=== PATIENT | male | born 1930 | race Caucasian/White ===

== ENCOUNTER 2021-08-29 22:04 | Inpatient (IN) | payer MEDICARE ==
[~2021-08-29] VITALS: Ht 180.3 cm; Wt 83.5 kg
[~2021-08-29 22:04] MED LIST: ACCUNEB SO1.25 MG/1 INH; ASPIRIN325 PO; COREG6.25 MG PO; HYDROCHLOROTHIA25 M2 PO; IMDUR 60 MG TAB60 M1 PO; KEFLEX250 M1 PO; LEVAQUIN 500 M500 M2 PO; LISINOPRIL10 MG PO; MONTELUKAST SOD10 MG PO; NORCO 5-325 TA1 EAC1 PO; PLAVIX 75 MG TA75 M1 PO; PREDNISONE 10 M10 MG PO; PROTONIX40 M1 PO; ZOCOR20 MG PO
[2021-08-29 22:05] VITALS: BP 176/96
[2021-08-29 22:27] LABS: ABSOLUTE BASOPHILS 0.1 thou/uL (0.0-0.2); ABSOLUTE EOSINOPHILS 0.4 thou/uL (0.0-0.7); ABSOLUTE LYMPHOCYTES 5.3 thou/uL (0.8-5.3); ABSOLUTE MONOCYTES 1.3 thou/uL (0.0-1.2); ABSOLUTE NEUTROPHILS 5.5 thou/uL (1.6-8.1); HEMATOCRIT 44.1 % (42.0-52.0); HEMOGLOBIN 14.5 gm/dL (14.0-18.0); LYMPHOCYTES 41.9 %; MCH 31.5 pg (26.0-34.0); MCHC 32.9 g/dL (28.0-37.0); MCV 95.9 fL (80.0-100.0); MONOCYTES 10.4 %; MPV 7.2 fl. (7.2-11.1); NUCLEATED RBCS 0 /100WBC; PLATELET COUNT* 330 thou/uL (150-400); POLYS 43.7 %; RDW-CV 13.7 % (10.5-14.5); WBC 12.6 thou/uL (4.0-11.0)
[2021-08-29 22:42] LABS: CALCIUM 8.6 mg/dL (8.5-10.1); CREATININE 1.4 mg/dL (0.6-1.3); POTASSIUM 3.7 mmol/L (3.5-5.1)
[2021-08-29 22:46] LABS: APTT 27.8 Seconds (25.0-31.3); INR 1.1; PROTIME 11.4 Seconds (9.20-11.50)
[2021-08-29 22:47] LABS: ALBUMIN 3.2 g/dL (3.4-5.0); MAGNESIUM 1.9 mg/dL (1.8-2.4); TOTAL BILIRUBIN 0.5 mg/dL (<0.1-1.0); TOTAL PROTEIN 8.4 g/dL (6.4-8.2)
[2021-08-29] MEDS ORDERED: CARVEDILOL12.5 MG PO (22:56)
[2021-08-29] MEDS ORDERED: LIPITOR40 MG PO (22:56)
[2021-08-29] MEDS ORDERED: ARTHRITIS PAIN100 GM TOP (22:56)
[2021-08-29] MEDS ORDERED: HYDROCHLOROTHIA25 M1 PO (22:56)
[2021-08-29] MEDS ORDERED: LEVO-T75 MCG PO (22:57)
[2021-08-29] MEDS ORDERED: LISINOPRIL10 MG PO (22:57)
[2021-08-29] MEDS ORDERED: ATROVENT HFA14 GM INH (22:57)
[2021-08-29] MEDS ORDERED: OMEPRAZOLE 20 M20 M1 PO (22:58)
[2021-08-29] MEDS ORDERED: NITROSTAT0.4 M1 PO (22:58)
[2021-08-29 23:17] LABS: BE -2.1 mmol/L (-2 to +3)
[2021-08-29 23:18] LABS: PCO2 53.1 mmHg (35.0-45.0); PO2 364.1 mmHg (75.0-100.0); pH 7.294 (7.340-7.450)
[2021-08-30] VITALS (46 sets, daily range): BP systolic 106–152; BP diastolic 51–91
[2021-08-30 01:07] LABS: BE -1.8 mmol/L (-2 to +3); pH 7.313 (7.340-7.450)
[2021-08-30 01:09] LABS: PCO2 50.3 mmHg (35.0-45.0)
[2021-08-30 11:18] LABS: HEMATOCRIT 42.5 % (42.0-52.0); HEMOGLOBIN 14.2 gm/dL (14.0-18.0); MCH 31.9 pg (26.0-34.0); MCHC 33.5 g/dL (28.0-37.0); MCV 95.3 fL (80.0-100.0); MPV 7.3 fl. (7.2-11.1); NUCLEATED RBCS 0 /100WBC; PLATELET COUNT* 290 thou/uL (150-400); RBC 4.45 mil/uL (4.50-6.00); URINE BILIRUBIN NEGATIVE (Negative); URINE BLOOD TRACE (Negative); URINE CLARITY CLEAR; URINE COLOR YELLOW; URINE GLUCOSE-RANDOM NEGATIVE (Negative); URINE KETONES NEGATIVE (Negative); URINE LEUKOCYTES-REFLEX NEGATIVE (Negative); URINE NITRITE-REFLEX NEGATIVE (Negative); URINE PROTEIN NEGATIVE (Negative); URINE SPECIFIC GRAVITY 1.015 (1.005-1.030); URINE UROBILINOGEN 0.2 E.U./dl (0.2-1.0); WBC 9.6 thou/uL (4.0-11.0)
--- NOTE | 2021-08-30 11:20 | EKG ---
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: : 1930 Requested By: Haley Griffith Order Number: [id number] MD: El Acosta Measurements Intervals Lutz Rate: 116 P: 55 VA: 158 QRS: 55 QRSD: 105 T: -40 QT: 322 QTc: 448 Interpretive Statements Sinus tachycardia Ventricular premature complex Borderline T abnormalities, inferior leads Compared to ECG 10/19/2015 09:23:08 Ventricular premature complex(es) now present Sinus rhythm no longer present Electronically Signed On 08-30-2021 11:19:46 LEPIDOPTERIST by El Acosta [email or web address] <ELECTRONICALLY SIGNED> By: El Acosta MD, FACC 08/30/21 1119 09 09 El Acosta MD, FACC /EPI
--- NOTE | 2021-08-30 11:22 | EKG ---
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
[2021-08-30 11:29] LABS: INR 1.1; PROTIME 11.3 Seconds (9.20-11.50)
[2021-08-30 11:32] LABS: ALBUMIN 2.9 g/dL (3.4-5.0); CALCIUM 8.6 mg/dL (8.5-10.1); CREATININE 1.3 mg/dL (0.6-1.3); MAGNESIUM 1.9 mg/dL (1.8-2.4); POTASSIUM 3.9 mmol/L (3.5-5.1); TOTAL BILIRUBIN 0.6 mg/dL (<0.1-1.0); TOTAL PROTEIN 7.9 g/dL (6.4-8.2)
[2021-08-30 12:18] LABS: ABSOLUTE LYMPHOCYTES 1.5 thou/uL (0.8-5.3); ABSOLUTE MONOCYTES 0.1 thou/uL (0.0-1.2); PLATELET ESTIMATE ADEQUATE
--- NOTE | 2021-08-30 13:57 | 2DMMODE ---
[place] [address] 2 D/M-MODE ECHOCARDIOGRAM Name: RACHEL MOSESShanice Gil Room: [address] ADM IN [facility]#: [id number] Admission: 08/30/21 Attend Phys: Manuel Khan Discharge: Date of : [birth year] Date of Service: 08/30/21 1357 Report #: [id number] THIS REPORT FOR: cc: Robert Car MD, Alan J. MD Blick, David R. MD [facility] ~ APPROVED REPORT Study performed: 08/30/2021 10:25:26 EXAM: Comprehensive 2D, Doppler, and color-flow Echocardiogram Patient Location: In-Patient Room #: 004 Status: routine BSA: 1.85 HR: 101 bpm BP: 143/74 mmHg Rhythm: NSR Other Information Study Quality: Good Indications Dyspnea 2D Dimensions IVSd: 11.81 (7-11mm) LVOT Diam: 20.68 (18-24mm) LVDd: 47.12 mm PWd: 9.71 (7-11mm) Ascending Ao: 28.72 (22-36mm) LVDs: 41.05 (25-40mm) Aortic Root: 33.07 mm Volumes Left Atrial Volume (Systole) LA ESV Index: 42.70 mL/m2 Aortic Valve AoV Peak Ronal.: 1.98 m/s AO Peak Gr.: 15.68 mmHg LVOT Max P.40 mmHg AO Mean Gr.: 9.52 mmHg LVOT Mean P.08 mmHg LVOT Max V: 0.77 m/s AO V2 VTI: 32.75 cm LVOT Mean V: 0.47 m/s AROLDO (VTI): 1.54 cm2 LVOT V1 VTI: 14.99 [place] [address] 2 D/M-MODE ECHOCARDIOGRAM Name: GALI MOSES Room: [address] IN ..#: [id number] Admission: 08/30/21 Attend Phys: Manuel Khan Discharge: Date of : [birth year] Date of Service: 08/30/21 1357 Report #: [id number] Mitral Valve E/A Ratio: 1.11 MV Decel. Time: 151.64 ms MV E Max Ronal.: 1.14 m/s MV PHT: 43.98 ms MVA (PHT): 5.00 cm2 TDI E/Lateral E': 10.36 Lateral E' Ronal.: 0.11 m/s Pulmonary Valve PV Peak Ronal.: 1.02 m/s PV Peak Gr.: 4.19 mmHg Tricuspid Valve RAP Estimate: 5.00 mmHg TR Peak Gr.: 35.87 mmHg RVSP: 41.00 mmHg PA Pressure: 41.00 mmHg Left Ventricle The left ventricle is normal size. akinesis of the base of the inferior wall There is normal left ventricular wall thickness. Left ventricular systolic function is mildly decreased. LVEF is 40-45%. The left ventricular diastolic function is normal. Right Ventricle The right ventricle is normal size. The right ventricular systolic function is normal. Atria Left atrium is moderately dilated. The right atrium size is normal. Aortic Valve Aortic valve is calcified. trace aortic regurgitation. Mild aortic stenosis. Mitral Valve The mitral valve is normal in structure. Moderate mitral regurgitation. No evidence of mitral valve stenosis. Tricuspid Valve The tricuspid valve is normal in structure. Trace tricuspid regurgitation. estimated pa pressure 40 mmm [place] [address] 2 D/M-MODE ECHOCARDIOGRAM Name: RACHEL MOSESShanice Gil Room: [address]#: [id number] Admission: 08/30/21 Attend Phys: Manuel Khan Discharge: Date of : [birth year] Date of Service: 08/30/21 1357 Report #: [id number] The pulmonary valve is normal in structure. There is no pulmonic valvular regurgitation. Great Vessels The aortic root is normal in size. IVC is normal in size and collapses >50% with inspiration. Pericardium There is no pericardial effusion. <Conclusion> LVEF is 40-45%. akinesis of the base of the inferior wall Left atrium is moderately dilated. Mild aortic stenosis. Moderate mitral regurgitation. Trace tricuspid regurgitation. estimated pa pressure 40 mmm Hg <ELECTRONICALLY SIGNED> By: El Acosta MD, [facility] 08/30/21 1357 1357 135 El Acosta MD, FACC /INF
[2021-08-31] VITALS (18 sets, daily range): BP systolic 112–166; BP diastolic 53–77
[2021-08-31 03:40] LABS: ABSOLUTE LYMPHOCYTES 0.8 thou/uL (0.8-5.3); ABSOLUTE MONOCYTES 0.3 thou/uL (0.0-1.2); ABSOLUTE NEUTROPHILS 10.5 thou/uL (1.6-8.1); BASOPHILS 0.1 %; HEMATOCRIT 40.7 % (42.0-52.0); HEMOGLOBIN 13.5 gm/dL (14.0-18.0); LYMPHOCYTES 6.6 %; MCH 31.6 pg (26.0-34.0); MCHC 33.2 g/dL (28.0-37.0); MCV 95.3 fL (80.0-100.0); MONOCYTES 2.3 %; MPV 7.1 fl. (7.2-11.1); NUCLEATED RBCS 0 /100WBC; PLATELET COUNT* 270 thou/uL (150-400); RBC 4.27 mil/uL (4.50-6.00); RDW-CV 14.2 % (10.5-14.5); WBC 11.5 thou/uL (4.0-11.0)
[2021-08-31 03:59] LABS: ALBUMIN 2.7 g/dL (3.4-5.0); ALKALINE PHOSPHATASE 71 U/L (46-116); ANION GAP 8 mmol/L (7-16); BUN 21 mg/dL (7-18); CALCIUM 8.4 mg/dL (8.5-10.1); CHLORIDE 102 mmol/L (98-107); CHOLESTEROL 119 mg/dL (<200); CO2 27 mmol/L (21-32); CREATININE 1.1 mg/dL (0.6-1.3); GLUCOSE 153 mg/dL (70-99); HDL CHOLESTEROL 63 mg/dL (>40); LDL CHOLESTEROL 44 mg/dL (<100); MAGNESIUM 2.3 mg/dL (1.8-2.4); POTASSIUM 3.8 mmol/L (3.5-5.1); SGOT 28 U/L (15-37); SGPT 24 U/L (30-65); SODIUM 137 mmol/L (136-145); TC:HDL 1.9 Ratio (Not establshd); TOTAL BILIRUBIN 0.6 mg/dL (<0.1-1.0); TOTAL PROTEIN 7.1 g/dL (6.4-8.2); TRIGLYCERIDE 61 mg/dL (<150); VLDL 12 mg/dL (<40)
[2021-08-31 04:03] LABS: SERUM ASSESSMENT CLEAR
--- NOTE | 2021-08-31 09:13 | CON ---
[address] [address] CONSULTATION Name: GALI MOSES Room: [address] IN M.R.#: [id number] Admission: 08/30/21 Attend Phys: Adrianne Mir Discharge: Date of : [birth year] Report #: [id number] THIS REPORT FOR: cc: Robert Car MD, Alan J. MD Blick, David R. MD [facility] ~ cc: Osman Barton MD DATE OF CONSULTATION: 08/30/2021 CARDIOLOGY CONSULTATION HISTORY OF PRESENT ILLNESS: The patient is an 89-year-old single white male who I was asked to see in the hospital today after he fell. The history is obtained from the patient. There are no old records available here. His grandson was present. According to the patient, he had a heart attack back in 1983 and had triple-vessel bypass surgery at [facility]. He has been followed by Dr. Contreras since that time. He has had several heart catheterizations since his bypass surgery, which is now more than 30 years ago, but he never required stenting. His last heart catheterization was several years ago in [facility]. He stays very active and denies any recent chest pain. Recently, he has had increasing shortness of breath, but denied any fever, edema or cough. Last night, he was at home. He then was walking in the home and fell. A friend came to visit him and saw him on the ground. Ambulance was called. He was brought here to [facility] and admitted for further evaluation and treatment. He denies any palpitations, previous syncope, vomiting, bleeding, diarrhea, medical noncompliance. PAST MEDICAL HISTORY: He has had cholecystectomy, prostate biopsy, cataract extraction. He has a history of hypertension. MEDICATIONS: His medications at home include carvedilol, isosorbide, hydrochlorothiazide, lisinopril, simvastatin, Protonix, aspirin, Lipitor, Atrovent inhaler, Synthroid, omeprazole. ALLERGIES: He has no known drug allergies. FAMILY HISTORY: His mother had a heart attack. SOCIAL HISTORY: He is , lives by himself in [place]. Quit smoking in 1983. He has a history of alcohol abuse, but quit 38 years ago when he went to . 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 REVIEW OF SYSTEMS: He has had no history of stroke, asthma, liver disease, kidney disease, cancer, psychiatric illness, [place] [address] CONSULTATION Name: GALI MOSES Room: [address] IN [facility]#: [id number] Admission: 08/30/21 Attend Phys: Adrianne Mir Discharge: Date of : [birth year] Report #: [id number] PHYSICAL EXAMINATION: GENERAL: Revealed an elderly male, lying in bed, he appeared in no distress. VITAL SIGNS: He had a blood pressure of 130/70, pulse is 90. He is afebrile. HEENT: He was anicteric. Conjunctivae pink. Mucous membranes moist. NECK: Veins not distended. No carotid bruits. Neck is supple. CHEST: Clear to auscultation. CARDIAC: Regular rate and rhythm with a grade 2 holosystolic murmur at the apex. ABDOMEN: Soft. EXTREMITIES: Had no edema. Dorsalis pedis pulse could not be palpated. SKIN: Cool and dry. NEUROLOGIC: Nonfocal. DIAGNOSTIC DATA: The patient's workup in the Emergency Room last night included an ECG that showed a sinus rhythm with early transition, nonspecific ST segment changes. On the monitor in the ICU this morning, he was noted to have a 12-beat run of wide complex tachycardia consistent with ventricular tachycardia at 180 beats per minute. His workup in the Emergency Room last night, he had a portable chest x-ray that showed consolidations in the left lower lung field, also mass-like lesion in the right upper lobe. He had a CT scan of the chest using a PE protocol that showed no pulmonary embolus, evidence of right upper lobe pneumonia, pulmonary edema, left nodule suspicious for cancer. He actually had a CT scan of the head without contrast after he fell that showed previous lacunar infarction, small vessel changes. LABORATORY DATA: His lab work, sodium 138, creatinine 1.3. High-sensitivity troponin was 655, it was 29 on admission. His hemoglobin is 14.2. His COVID antigen stat test was negative. Urinalysis is negative for protein. IMPRESSION AND RECOMMENDATIONS: 1. History of fall. Possible loss of balance. 2. Previous coronary artery bypass surgery. No recent angina. Borderline troponin. I would not recommend stress testing nor cardiac catheterization at this time. I would continue on aspirin a day. 3. Hypertension. The patient is on a beta jaleesa and ELICEO inhibitor. 4. Hyperlipidemia. The patient is on a statin drug. 5. Previous tobacco abuse. 6. [place] [address] CONSULTATION Name: GALI MOSES Room: [address] IN M.R.#: [id number] Admission: 08/30/21 Attend Phys: Adrianne Mir Discharge: Date of : [birth year] Report #: [id number] 7. Nonsustained ventricular tachycardia. I would not treat at this time. I would obtain an echocardiogram. <ELECTRONICALLY SIGNED> By: El Acosta MD, FACC 08/31/21 0913 1224 [id number] Acosta MD, FACErnesto /nt
[2021-08-31 10:44] LABS: PCO2 36.8 mmHg (35.0-45.0); pH 7.446 (7.340-7.450)
[2021-08-31 10:50] LABS: PO2 57.7 mmHg (75.0-100.0)
[2021-09-01] VITALS (7 sets, daily range): BP systolic 103–150; BP diastolic 57–84
[2021-09-01 04:10] LABS: HEMATOCRIT 36.7 % (42.0-52.0); HEMOGLOBIN 12.1 gm/dL (14.0-18.0); MCH 31.4 pg (26.0-34.0); MCHC 32.9 g/dL (28.0-37.0); MCV 95.3 fL (80.0-100.0); MPV 7.2 fl. (7.2-11.1); RBC 3.85 mil/uL (4.50-6.00); RDW-CV 13.7 % (10.5-14.5); WBC 11.7 thou/uL (4.0-11.0)
[2021-09-01 04:20] LABS: ALBUMIN 2.6 g/dL (3.4-5.0); CALCIUM 8.2 mg/dL (8.5-10.1); CREATININE 1.1 mg/dL (0.6-1.3); MAGNESIUM 1.9 mg/dL (1.8-2.4); POTASSIUM 3.5 mmol/L (3.5-5.1); TOTAL BILIRUBIN 0.5 mg/dL (<0.1-1.0); TOTAL PROTEIN 6.4 g/dL (6.4-8.2)
[2021-09-01 08:21] LABS: INFLUENZA A ANTIGEN Negative (Negative); INFLUENZA B ANTIGEN Negative (Negative)
[2021-09-02 03:40] VITALS: BP 113/61
[2021-09-02 09:28] VITALS: BP 137/63
[2021-09-02 09:37] LABS: ABSOLUTE LYMPHOCYTES 0.7 thou/uL (0.8-5.3); ABSOLUTE MONOCYTES 0.3 thou/uL (0.0-1.2); ABSOLUTE NEUTROPHILS 9.4 thou/uL (1.6-8.1); BASOPHILS 0.4 %; EOSINOPHILS 0.1 %; HEMOGLOBIN 12.5 gm/dL (14.0-18.0); LYMPHOCYTES 7.1 %; MCH 31.9 pg (26.0-34.0); MCHC 33.7 g/dL (28.0-37.0); MCV 94.6 fL (80.0-100.0); MONOCYTES 3.1 %; MPV 7.7 fl. (7.2-11.1); NUCLEATED RBCS 0 /100WBC; PLATELET COUNT* 273 thou/uL (150-400); POLYS 89.3 %; RBC 3.91 mil/uL (4.50-6.00); RDW-CV 13.5 % (10.5-14.5); WBC 10.5 thou/uL (4.0-11.0)
[2021-09-02 10:05] LABS: ALBUMIN 2.6 g/dL (3.4-5.0); CALCIUM 8.4 mg/dL (8.5-10.1); CREATININE 1.2 mg/dL (0.6-1.3); POTASSIUM 3.4 mmol/L (3.5-5.1); TOTAL BILIRUBIN 0.6 mg/dL (<0.1-1.0); TOTAL PROTEIN 5.9 g/dL (6.4-8.2)
[2021-09-02 12:00] VITALS: BP 106/62
[2021-09-02 16:00] VITALS: BP 120/63
[2021-09-02 20:12] VITALS: BP 138/63
--- NOTE | 2021-09-02 20:39 | CON ---
[address] [address] CONSULTATION Name: GALI MOSES Louise Room: [address] IN M.R.#: [id number] Admission: 08/30/21 Attend Phys: Adrianne Mir Discharge: Date of : [birth year] Report #: [id number] THIS REPORT FOR: cc: Robert Car MD, Alan J. MD Pervez, Adeel MD ~ DATE OF CONSULTATION: 08/30/2021 REQUESTING PHYSICIAN: Dr. Brandt. INDICATION FOR CONSULTATION: COPD with respiratory failure/pulmonary infiltrates/possible lung mass. HISTORY OF PRESENT ILLNESS: This is an 89-year-old gentleman, past medical history includes a history of coronary artery disease. He is status post CABG. I do not have a measure of his left ventricular ejection fraction available. He does have an extensive history of smoking in the past. He is on oxygen at home. He is using it only during the day and not at night and may have misunderstood instructions. The patient has been vaccinated for COVID with initial 2 doses and then booster as well. He has also had the flu shot this fall. The patient now reports that he had increasing shortness of breath for the last 1 week. He had also had a cough and reports having brought up small amounts of green as well as yellow sputum. The patient subsequently had a fall. He is not able to describe how he fell. He does not describe any recent sore throat, fever or runny nose. He does not describe swelling of lower extremities or calf pain. He has had some joint pains, which remain at baseline. He does not describe any abdominal complaints or urinary complaints. Upon arrival, the patient was found to be in respiratory distress initially. He was placed on 100% FiO2 with a BiPAP. He did have a respiratory acidosis; however, it does not appear that he was markedly hypoxemic. His pO2 initially was 364 and oxygen was quickly titrated down and the BiPAP to 40%. We have just taken him off BiPAP and placed him on 10 liters green high-flow nasal cannula. He so far is maintaining O2 saturation in the high 90s. He is mildly tachycardic with a heart rate around 110. He is maintaining normal blood pressure. REVIEW OF SYSTEMS: For 12 points is negative except as described above. PAST MEDICAL HISTORY: Coronary artery disease, status post CABG, status post myocardial infarction, I do not have a measure of his left ventricular ejection fraction available, COPD, he is on oxygen long-term, hypertension, osteoarthritis, [place] [address] CONSULTATION Name: GALI MOSES Louise Room: [address] IN [facility].#: [id number] Admission: 08/30/21 Attend Phys: Adrianne Mir Discharge: Date of : [birth year] Report #: [id number] SOCIAL HISTORY: He has an extensive history of smoking in the past. He has now discontinued. No known history of heavy alcohol use or illegal drug use. CURRENT MEDICATIONS: List in [employer] reviewed. HOME MEDICATIONS: List also in [employer] reviewed. ALLERGIES: No known drug allergies. FAMILY HISTORY: There is a history of coronary artery disease and lung cancer in his family. IMMUNIZATION HISTORY: He has had 2 doses of COVID-19 vaccine and also had the booster. He also had the flu shot this year. PHYSICAL EXAMINATION: GENERAL: He is alert, awake and oriented; however, he does provide somewhat limited history. VITAL SIGNS: I have just taken him off BiPAP, which was at 40% and placed him on a green high-flow nasal cannula. So far, he is maintaining O2 saturation in the high 90s. He was tachycardic, heart rate 110, blood pressure 130/70, saturating 97%, respiratory rate 22-23, afebrile with a temperature of 36.3. HEENT: Head is normocephalic and atraumatic. Pupils are equal and reactive. There is no throat erythema. NECK: Does not show raised JVP, asymmetry, mass or lymph nodes. CHEST: Symmetrical expansion on inspection and palpation. On auscultation, breath sounds are bilaterally equal, but decreased. I do not hear any added sounds. Expirations however are prolonged. HEART: Regular. There is a minimal systolic murmur. ABDOMEN: Soft and nontender. EXTREMITIES: Lower extremities show no edema. There is no calf tenderness. There are, however varicose veins present and there is evidence of chronic venous insufficiency. SKIN: Dry and intact. NEUROLOGIC: Moves all extremities bilaterally equally and spontaneously with no focal deficit identified. IMAGING DATA: The patient did have a CTA chest performed last night. In summary, there are no pulmonary emboli. There are extensive infiltrates, right greater than left. There is a nodule in the left lung, which is suspicious of malignancy. There is mild fluid overload. LABORATORY DATA: The patient's lab work also is in [employer]. This is reviewed. Leukocytosis is noted. The patient, however, does not have bandemia. He did [address] [address] CONSULTATION Name: GALI MOSES Room: [address] IN [place]#: [id number] Admission: 08/30/21 Attend Phys: Adrianne Mir Discharge: Date of : [birth year] Report #: [id number] have an acute hypercarbic respiratory failure initially on arterial blood gases. Arterial blood gases are reviewed. COVID-19 antigen came back negative. Creatinine was 1.4. His baseline creatinine from 2016 is 1.2. The patient did receive IV dye last night. ASSESSMENT AND PLAN: 1. Acute on chronic hypoxemic and hypercarbic respiratory failure. The patient does have chronic hypoxemic respiratory failure. Hypercarbia at least partly is acute. We have just taken him off BiPAP. So far, he is maintaining O2 saturation. We will titrate him down to an O2 saturation in the low 90s. Once he is on a stable amount of oxygen, we will plan to obtain an arterial blood gas and see where we stand. We will tentatively plan to keep him on a nasal cannula while awake and place him on a BiPAP while asleep. 2. Fall. At first glance, it appears that the patient did have a syncope or altered mental status and the fall occurred. I would defer workup of this to Primary Service and Cardiology. 3. Extensive bilateral infiltrates. CT chest shows fairly large bilateral pulmonary infiltrates, more in the right lung. I do not have a previous CT available for comparison. Findings are new compared with the x-ray performed in 2016. Initially, I would cover fairly broadly with antibiotics, ordered linezolid, Zosyn as well as Zithromax. We will order more cultures and serologies. I ordered a nasal swab for influenza as well; however, at first glance, this appears to be pneumonia of bacterial and not of viral origin. 4. Lung nodule. There is also a lung nodule in the left lung, this is suspicious of malignancy. Not known to me if this has previously been known. We will address his respiratory failure and pneumonia first. Down the line, he will need further evaluation for this nodule. 5. Chronic obstructive pulmonary disease exacerbation. He is on Solu-Medrol and nebulized bronchodilators. We will follow response and titrate accordingly. 6. Elevated troponin. I would defer management to the Cardiology Service. I did request an echocardiogram. 7. Chronic venous insufficiency. CTA chest does not show evidence of pulmonary emboli; however, I did order more labs now. If D-dimer is elevated, I would recommend obtaining venous Dopplers. The patient currently is noted to be on IV heparin infusion. 8. Renal insufficiency Unknown if acute or chronic. I have ordered repeat labs as above. There is mild fluid overload on the CTA chest as above; however, he did receive IV dye. From a pulmonary point of view, he likely will tolerate some fluid if needed to preserve renal function. We will see which way his creatinine is trending. If it is trending up, then I may cautiously give him some IV fluids to avoid risk of contrast nephropathy and plan to diurese him later. 9. Hyperglycemia, insulin sliding scale. 10. Gastrointestinal prophylaxis. [place] [address] CONSULTATION Name: AURELIAGALI L Room: [address] IN ..#: [id number] Admission: 08/30/21 Attend Phys: Adrianne Mir Discharge: Date of : [birth year] Report #: [id number] 11. Clostridium difficile prophylaxis is Lactinex. The patient is critically ill at this time. Total time spent providing critical care to this patient today exceeds 45 minutes. <ELECTRONICALLY SIGNED> By: Chava Day MD 09/02/21 2039 0942 [id number] Day MD /nt
[2021-09-03 02:06] LABS: MYCOPLASMA PNEUMONIA IgG <100 U/mL (0-99); MYCOPLASMA PNEUMONIA IgM <770 U/mL (0-769)
[2021-09-03 02:20] VITALS: BP 124/65
[2021-09-03 05:34] LABS: HEMATOCRIT 36.4 % (42.0-52.0); HEMOGLOBIN 12.1 gm/dL (14.0-18.0); MCH 31.1 pg (26.0-34.0); MCHC 33.3 g/dL (28.0-37.0); MCV 93.5 fL (80.0-100.0); MPV 7.2 fl. (7.2-11.1); NUCLEATED RBCS 0 /100WBC; PLATELET COUNT* 280 thou/uL (150-400); RBC 3.89 mil/uL (4.50-6.00); RDW-CV 13.9 % (10.5-14.5); WBC 11.3 thou/uL (4.0-11.0)
[2021-09-03 05:40] LABS: ALBUMIN 2.6 g/dL (3.4-5.0); CALCIUM 8.3 mg/dL (8.5-10.1); CREATININE 1.2 mg/dL (0.6-1.3); MAGNESIUM 2.3 mg/dL (1.8-2.4); POTASSIUM 3.5 mmol/L (3.5-5.1); TOTAL BILIRUBIN 0.7 mg/dL (<0.1-1.0); TOTAL PROTEIN 6.4 g/dL (6.4-8.2)
[2021-09-03 06:02] VITALS: BP 114/76
[2021-09-03 06:42] LABS: ABSOLUTE LYMPHOCYTES 1.5 thou/uL (0.8-5.3); ABSOLUTE MONOCYTES 0.3 thou/uL (0.0-1.2); ABSOLUTE NEUTROPHILS 9.5 thou/uL (1.6-8.1)
[2021-09-03 06:45] LABS: PLATELET ESTIMATE ADEQUATE
[2021-09-03 08:00] VITALS: BP 109/53
[2021-09-03 12:00] VITALS: BP 134/71
[2021-09-03 19:15] VITALS: BP 135/72
[2021-09-04 00:05] VITALS: BP 124/56
[2021-09-04 04:21] VITALS: BP 139/71
[2021-09-04 08:45] LABS: HEMATOCRIT 35.1 % (42.0-52.0); HEMOGLOBIN 11.9 gm/dL (14.0-18.0); MCH 31.8 pg (26.0-34.0); MCHC 33.9 g/dL (28.0-37.0); MPV 6.8 fl. (7.2-11.1); RBC 3.73 mil/uL (4.50-6.00); RDW-CV 13.7 % (10.5-14.5)
[2021-09-04 09:13] LABS: CALCIUM 8.2 mg/dL (8.5-10.1); MAGNESIUM 2.3 mg/dL (1.8-2.4)
[2021-09-04 09:27] VITALS: BP 138/69
[2021-09-04 13:11] VITALS: BP 110/62
[2021-09-04 17:29] VITALS: BP 130/68
[2021-09-04 20:00] VITALS: BP 116/59
[2021-09-05 00:57] VITALS: BP 105/50
[2021-09-05 03:53] LABS: ABSOLUTE LYMPHOCYTES 1.4 thou/uL (0.8-5.3); ABSOLUTE MONOCYTES 0.6 thou/uL (0.0-1.2); BASOPHILS 0.3 %; EOSINOPHILS 0.1 %; HEMATOCRIT 33.6 % (42.0-52.0); HEMOGLOBIN 11.2 gm/dL (14.0-18.0); LYMPHOCYTES 15.5 %; MCH 31.8 pg (26.0-34.0); MCHC 33.5 g/dL (28.0-37.0); MCV 94.8 fL (80.0-100.0); MONOCYTES 6.3 %; MPV 7.8 fl. (7.2-11.1); NUCLEATED RBCS 0 /100WBC; PLATELET COUNT* 288 thou/uL (150-400); POLYS 77.8 %; RBC 3.54 mil/uL (4.50-6.00); RDW-CV 13.6 % (10.5-14.5)
[2021-09-05 04:00] VITALS: BP 127/59
[2021-09-05 04:11] LABS: ALBUMIN 2.4 g/dL (3.4-5.0); CALCIUM 7.9 mg/dL (8.5-10.1); CREATININE 1.1 mg/dL (0.6-1.3); MAGNESIUM 2.1 mg/dL (1.8-2.4); TOTAL BILIRUBIN 0.8 mg/dL (<0.1-1.0)
[2021-09-05 08:00] VITALS: BP 113/62
[2021-09-05 12:00] VITALS: BP 130/55
[2021-09-05] MEDS ORDERED: LINEZOLID600 MG PO (12:23)
[2021-09-05] MEDS ORDERED: PREDNISONE 10 M10 M1 PO (12:23)
[2021-09-05] MEDS ORDERED: FOLIC ACID1 MG PO (12:23)
[2021-09-05] MEDS ORDERED: FLUCONAZOLE 10100 MG PO (12:23)
[2021-09-05] MEDS ORDERED: DOXYCYCLINE 10100 MG PO (12:23)
[2021-09-05] MEDS ORDERED: LEVALBUTER1.25 MG/0. INH (12:23)
[2021-09-05 15:00] VITALS: BP 130/55
[2021-09-05 16:09] VITALS: BP 130/55
== END 2021-09-05 16:45 | disposition home or self-care (01) | DRG 177 ==
LOC: M.ERS 22:04 → M.TBA-ER 08-30 02:53 → M.ICU 08-30 09:34 → M.ORTHSURG 08-31 13:30
PROVIDERS: Internal Medicine; Internal Medicine Critical Care Medicine; Personal Emergency Response Attendant; ADMIT Internal Medicine; ATTEND Internal Medicine
DX: J15.6 Pneumonia due to other Gram-negative bacteria (principal); J96.21 Acute and chronic respiratory failure with hypoxia; J96.22 Acute and chronic respiratory failure with hypercapnia; I21.4 Non-ST elevation (NSTEMI) myocardial infarction; J44.1 Chronic obstructive pulmonary disease with (acute) exacerbation; I47.2 Ventricular tachycardia; N17.9 Acute kidney failure, unspecified; I50.22 Chronic systolic (congestive) heart failure; K92.1 Melena; J44.0 Chronic obstructive pulmonary disease with (acute) lower respiratory infection; Z20.822 Contact with and (suspected) exposure to COVID-19; M19.90 Unspecified osteoarthritis, unspecified site; I25.10 Atherosclerotic heart disease of native coronary artery without angina pectoris; R91.1 Solitary pulmonary nodule; I87.2 Venous insufficiency (chronic) (peripheral); R73.9 Hyperglycemia, unspecified; E78.5 Hyperlipidemia, unspecified; I35.0 Nonrheumatic aortic (valve) stenosis; R63.4 Abnormal weight loss; B37.9 Candidiasis, unspecified; D64.9 Anemia, unspecified; I11.0 Hypertensive heart disease with heart failure; R91.8 Other nonspecific abnormal finding of lung field; Z79.82 Long term (current) use of aspirin; I25.2 Old myocardial infarction; Z95.1 Presence of aortocoronary bypass graft; Z82.49 Family history of ischemic heart disease and other diseases of the circulatory system; Z68.25 Body mass index [BMI] 25.0-25.9, adult; Z87.891 Personal history of nicotine dependence; Z79.899 Other long term (current) drug therapy